=== PATIENT | female | born 1940 | race Caucasian/White ===

== ENCOUNTER 2016-11-06 15:38 | Inpatient (IN) | payer OTHER, MEDICAID ==
--- NOTE | 2016-11-06 15:49 | EDPHY ---
H & P Time Seen by Provider: 11/06/16 15:40 HPI/ROS: CHIEF COMPLAINT: Lethargy HISTORY OF PRESENT ILLNESS: Patient is a 76-year-old prison resident with a history of dementia who presents to the emergency department being less active than normal. Per EMS, the staff states she has been less active than normal. She has a mildly decreased activity level. She has still been alert. She has known dementia and is chronically confused. No other specific complaints. Patient had laboratory studies drawn earlier this morning. Patient does not answer specific questions. REVIEW OF SYSTEMS: Limited due the patient's dementia. Past Medical/Surgical History: Includes anxiety, hyperlipidemia, chronic fatigue, vitamin-D deficiency, GERD, esophagitis, dementia Social History: Patient is a prison resident. She does not smoke. Physical Exam: Vitals noted GENERAL: No acute distress, alert. Patient looks at me when I ask her questions. She does state her name but does not answer other questions. She is minimally cooperative with exam. HEENT: Eyes normal to inspection, normal pharynx, dry mucous membranes. NECK: No thyromegaly, no lymphadenopathy, supple. RESPIRATORY: Clear to auscultation bilaterally, no rales, rhonchi or wheezing. CVS: Regular rate and rhythm, no rubs, murmurs, or gallops. ABDOMEN: Soft, nontender, nondistended, no organomegaly. BACK: Normal to inspection, no CVA tenderness. SKIN: Normal color, no rash, warm, dry. No pallor. EXTREMITIES: No pedal edema, no calf tenderness, no Homans sign or cords, no joint swelling. NEURO/PSYCH: Alert and oriented x1, easily agitated, normal motor sensory exam. Moves all extremities purposefully. No obvious cranial nerve deficit. Constitutional: Initial Vital Signs Temperature (C) 36.9 C 11/06/16 15:49 Heart Rate 82 11/06/16 15:49 Respiratory Rate 20 11/06/16 15:49 Blood Pressure 94/65 L 11/06/16 15:49 O2 Sat (%) 92 11/06/16 15:49 O2 Delivery Mode Room Air Allergies/Adverse Reactions: Penicillins Allergy (Unknown, Verified 08/17/12 10:33) ampicillin Allergy (Verified 11/06/16 15:53) clindamycin Allergy (Verified 11/06/16 15:53) codeine Allergy (Verified 11/06/16 15:53) fluticasone Allergy (Verified 11/06/16 15:53) galantamine Allergy (Verified 11/06/16 15:53) iodine Allergy (Verified 11/06/16 15:53) meperidine Allergy (Verified 11/06/16 15:53) Home Medications: Medication Instructions Recorded Beta-Carotene(A) W-C & E/Min 1 tab PO DAILY 08/17/12 [Ocuvite] Lisinopril [Zestril 10 mg (RX)] 10 mg PO DAILY 08/17/12 Nicotine [Nicoderm Cq] 0.25 each TD DAILY 08/17/12 [place]-3 Fatty Acids [Fish Oil 1000 1,000 mg PO DAILY 08/17/12 mg (OTC)] Machinery Erector Completed 08/17/12 08/17/12 Pravastatin Sodium 10 mg PO DAILY 08/17/12 Medical Decision Making - Diagnostics EKG Interpretation: Sinus rhythm at 84. Left axis deviation. No ST elevation. Imaging: Imaging Impressions Chest X-Ray 11/06/16 15:52 Impression: Diminished lung volumes with bilateral lower lobe atelectasis. ED Course/Re-evaluation: I met EMS on arrival. I took report from the paginator. I reviewed the patient 's documentation from the prison. She does have a most form. Comfort measures only with no CPR. Patient had laboratory studies drawn this morning. [place] [address]. Her med crit was 38. Her platelets were normal at 198. Sodium was normal at 143. Potassium low at 2.8. Chloride mildly high at 111. CO2 low at 20. Glucose was 107. Creatinine was 1.1. Laboratory studies, chest x-ray, EKG were ordered. I rechecked the patient while here. She had no new complaints. I reviewed the patient's laboratory studies. [place] [id number]. Lactate was 1. Creatinine was mildly elevated 1.3. Her troponin was elevated at greater than 6. Sodium was mildly low at 130. Potassium was normal. Patient has positive urine study. Of note, I reviewed the patient's MOST form. The patient has a box checked stating she wants to receive antibiotics. However this scribbled out with an initial. The box stating she does not want antibiotics is checked. This is initialled. The prison was contacted. This accounts for the delay in antibiotic administration. Severe sepsis was declared. Repeat lactate was ordered. Patient was given normal saline 30 milliliters/kilogram. This was done with caution due to her age and concern for fluid overload. Patient was given Rocephin 1 g IV. 90/55. O2 sat 93%. I discussed the case with the hospitalist service. Dr. Maria Teresa Paiz agrees to admission. A continue with frequent rechecks of the patient. Her systolic pressure remained in the 90s. She continued to have a normal HR. Patient's son was contacted and informed of the patient's condition. Differential Diagnosis: My differential includes but is not limited to bacteremia, sepsis, urinary tract infection, pyelonephritis, electrolyte abnormality, sugar abnormality, pneumonia, dementia, CVA, ACS, acute GA Critical Care Time: The patient required 35 minutes of critical care time. This was exclusive of any unbundled procedure. This was due to the patient's dementia and altered mental status, need for frequent rechecks, hypotension, underlying infection, abnormal laboratory studies. - Data Points Laboratory Results: Laboratory Results 11/06/16 16:00 11/06/16 16:00 11/06/16 11/06/16 11/06/16 16:25 16:00 16:00 WBC RBC Hgb Hct MCV MCH MCHC RDW Plt Count MPV Neut % (Auto) Lymph % (Auto) [place] % (Auto) Eos % (Auto) Baso % (Auto) Nucleat RBC Rel Count Absolute Neuts (auto) Absolute Lymphs (auto) Absolute Monos (auto) Absolute Eos (auto) Absolute Basos (auto) Absolute Nucleated RBC Immature Gran % Seg Neutrophils % Band Neutrophils % Lymphocytes % Monocytes % Immature Gran # Absolute Seg Neuts Absolute Band Neuts Absolute Lymphocytes Absolute Monocytes RBC/WBC/PLT Morphology Platelet Estimate PT 13.7 SEC SEC (12.0-15.0) INR 1.06 (0.83-1.16) APTT 30.3 SEC SEC (23.0-38.0) VBG Lactic Acid Sodium 142 mEq/L mEq/L (134-144) Potassium 3.0 mEq/L L mEq/L (3.5-5.2) Chloride 111 mEq/L H mEq/L (97-110) Carbon Dioxide 24 mEq/l mEq/l (22-31) Anion Gap 7 mEq/L L mEq/L (8-16) BUN 28 mg/dL H mg/dL (7-23) Creatinine 1.3 mg/dL H mg/dL (0.6-1.0) Estimated GFR 40 Glucose 155 mg/dL H mg/dL (70-100) Calcium 8.0 mg/dL L mg/dL (8.5-10.4) Total Bilirubin 0.6 mg/dL mg/dL (0.1-1.4) Troponin I 6.250 ng/mL H ng/mL (0-0.034) Urine Color DAVID Urine Appearance MODERATELY TURBID Urine pH 5.0 (5.0-7.5) Ur Specific [place] > 1.035 H (1.002-1.030) Urine Protein 3+ H (NEGATIVE) Urine Ketones NEGATIVE (NEGATIVE) Urine Blood 3+ H (NEGATIVE) Urine Nitrate NEGATIVE (NEGATIVE) Urine Bilirubin NEGATIVE (NEGATIVE) Urine Urobilinogen NEGATIVE EU EU (0.2-1.0) Ur Leukocyte Esterase NEGATIVE (NEGATIVE) Urine RBC 5-10 /hpf H /hpf (0-3) Urine WBC 50-182 /hpf H /hpf (0-3) Ur Epithelial Cells TRACE /lpf /lpf (NONE-1+) Urine Bacteria 4+ /hpf H /hpf (NONE SEEN) Urine Mucus 2+ /lpf H /lpf (NONE-1+) Urine Glucose NEGATIVE (NEGATIVE) 11/06/16 11/06/16 16:00 16:00 WBC 21.47 10^3/uL H 10^3/uL (3.80-9.50) RBC 4.64 10^6/uL 10^6/uL (4.18-5.33) Hgb 12.4 g/dL L g/dL (12.6-16.3) Hct 37.9 % L % (38.0-47.0) MCV 81.7 fL fL (81.5-99.8) MCH 26.7 pg L pg (27.9-34.1) MCHC 32.7 g/dL g/dL (32.4-36.7) RDW 14.2 % % (11.5-15.2) Plt Count 232 10^3/uL 10^3/uL (150-400) MPV 11.4 fL fL (8.7-11.7) Neut % (Auto) Not Reported Lymph % (Auto) Not Reported [place] % (Auto) Not Reported Eos % (Auto) Not Reported Baso % (Auto) Not Reported Nucleat RBC Rel Count 0.0 % % (0.0-0.2) Absolute Neuts (auto) Not Reported Absolute Lymphs (auto) Not Reported Absolute Monos (auto) Not Reported Absolute Eos (auto) Not Reported Absolute Basos (auto) Not Reported Absolute Nucleated RBC 0.00 10^3/uL 10^3/uL (0-0.01) Immature Gran % Not Reported Seg Neutrophils % 77 % % Band Neutrophils % 16 % % Lymphocytes % 2 % % Monocytes % 5 % % Immature Gran # Not Reported Absolute Seg Neuts 16.53 10^/uL H 10^/uL (1.70-6.50) Absolute Band Neuts 3.44 10^3/uL H 10^3/uL (0.00-0.70) Absolute Lymphocytes 0.43 10^3/uL L 10^3/uL (1.00-3.00) Absolute Monocytes 1.07 10^3/uL H 10^3/uL (0.30-0.80) RBC/WBC/PLT Morphology NORMAL (NORMAL) Platelet Estimate ADEQUATE (ADEQ) PT INR APTT VBG Lactic Acid 1.0 mmol/L mmol/L (0.7-2.1) Sodium Potassium Chloride Carbon Dioxide Anion Gap BUN Creatinine Estimated GFR Glucose Calcium Total Bilirubin Troponin I Urine Color Urine Appearance Urine pH Ur Specific [place] Urine Protein Urine Ketones Urine Blood Urine Nitrate Urine Bilirubin Urine Urobilinogen Ur Leukocyte Esterase Urine RBC Urine WBC Ur Epithelial Cells Urine Bacteria Urine Mucus Urine Glucose Medications Given: Discontinued Medications Sodium Chloride (Ns) 500 mls @ 0 mls/hr IV ONCE ONE PRN Reason: Wide Open Stop: 11/06/16 15:55 Last Admin: 11/06/16 16:42 Dose: 500 mls Ceftriaxone Sodium/Dextrose (Rocephin 1 Gm (Premix)) 50 mls @ 100 mls/hr IV EDNOW ONE PRN Reason: Protocol Stop: 11/06/16 17:32 Last Admin: 11/06/16 17:30 Dose: 50 mls Departure - Departure Disposition: [facility] Acute Clinical Impression: Elevated troponin, Severe sepsis Dementia Qualifiers: Dementia type: unspecified type Leukocytosis Qualifiers: Leukocytosis type: unspecified Qualified Code(s): D72.829 - Elevated white blood cell count, unspecified Urinary tract infection Qualifiers: Urinary tract infection type: acute cystitis Hematuria presence: with hematuria Qualified Code(s): N30.01 - Acute cystitis with hematuria Condition: Good
[2016-11-06] MEDS ORDERED: NS 500 ML IV ONE (15:54)
[2016-11-06 16:14] LABS: ADD DIFF? YES; ADD MORPH? NO; ADD SCAN? NO; ATYPICAL LYMPHOCYTE FLAG 0 (0-99); FRAGMENT RBC FLAG 0 (0-99); HEMATOCRIT 37.9 % (38.0-47.0); HEMOGLOBIN 12.4 g/dL (12.6-16.3); LEFT SHIFT FLG 30 (0-99); LIPEMIA HEMOLYSIS FLAG 80 (0-99); MEAN CELL HEMOGLOBIN 26.7 pg (27.9-34.1); MEAN CELL HEMOGLOBIN CONCENTR. 32.7 g/dL (32.4-36.7); MEAN CELL VOLUME 81.7 fL (81.5-99.8); MEAN PLATELET VOLUME 11.4 fL (8.7-11.7); PLATELET CLUMPS FLAG 20 (0-99); PLATELET COUNT 232 10^3/uL (150-400); RED BLOOD CELL COUNT 4.64 10^6/uL (4.18-5.33); RED CELL DISTRIBUTION WIDTH 14.2 % (11.5-15.2)
--- NOTE | 2016-11-06 16:18 | CPEKG ---
Heart Rate: 84 RR Interval: 714 P-R Interval: 140 QRSD Interval: 84 QT Interval: 388 QTC Interval: 459 P [place]: 74 QRS [place]: -16 T Wave [place]: 10 EKG Severity - BORDERLINE ECG - EKG Impression: SINUS RHYTHM EKG Impression: PROBABLE LEFT ATRIAL ABNORMALITY EKG Impression: BORDERLINE LEFT AXIS DEVIATION Electronically Signed By: Sara Mota 06-Nov-2016 22:08:37
[2016-11-06 16:26] LABS: APTT 30.3 SEC (23.0-38.0); INR 1.06 (0.83-1.16); PROTIME(PATIENT) 13.7 SEC (12.0-15.0)
[2016-11-06 16:27] LABS: ANION GAP 7 mEq/L (8-16); BILIRUBIN,TOTAL 0.6 mg/dL (0.1-1.4); CARBON DIOXIDE 24 mEq/l (22-31); CHLORIDE 111 mEq/L (97-110); CREATININE 1.3 mg/dL (0.6-1.0); GLOMERULAR FILTRATION RATE 40; GLUCOSE 155 mg/dL (70-100); SODIUM 142 mEq/L (134-144)
[2016-11-06 16:37] LABS: PLATELET ESTIMATE ADEQUATE (ADEQ)
[2016-11-06 16:38] LABS: COLOR AMBER; LEUKOCYTE ESTERASE,URINE NEGATIVE (NEGATIVE); NITRITE,URINE NEGATIVE (NEGATIVE)
[2016-11-06 16:43] LABS: BACTERIA 4+ /hpf (NONE SEEN); MUCUS 2+ /lpf (NONE-1+); WBC,URINE 50-182 /hpf (0-3)
[2016-11-06] MEDS ORDERED: NS 2,200 ML IV ONE (17:03)
[2016-11-06] MEDS ORDERED: ONDANSETRON 4 MG/2 ML VIAL IVP PRN (19:13)
[2016-11-06] MEDS ORDERED: ACETAMINOPHEN 650 MG SUPP PR PRN (19:13)
[2016-11-06] MEDS ORDERED: ONDANSETRON DISINTEGRATING 4 MG TAB PO PRN (19:13)
[2016-11-06] MEDS ORDERED: LORazepam 2 MG/ML INJ IVP PRN (19:13)
[2016-11-06] MEDS ORDERED: NS 1,000 ML IV SCH (19:15)
[2016-11-06] MEDS ORDERED: PROTOCOL MAGNESIUM 1 DOSE IV PRN (19:18)
[2016-11-06] MEDS ORDERED: PROTOCOL CALCIUM 1 DOSE IV PRN (19:18)
[2016-11-06] MEDS ORDERED: PROTOCOL K PHOSPHATE 1 DOSE IV PRN (19:18)
[2016-11-06] MEDS ORDERED: PROTOCOL POTASSIUM 1 DOSE MISC PRN (19:18)
--- NOTE | 2016-11-06 19:25 | PDGENHP ---
History and Physical - Chief Complaint decreased interaction - History of Present Illness 76 yo F with hx of advanced Alzheimer's dementia presenting from [facility] where she resides with concerns that she has been less interactive than usual At baseline she is oriented x 1, but generally more responsive than she was found to be today. There were not any other specific concerns raised by [facility] and patient herself is not verbally interactive at the time of my evaluation. Her vital signs were not reported as different and she was not reported to be complaining of pain etc. Discussed with patients son Joe over the phone, he notes that there have been concerns at [facility] for the last week that she has not been herself, and less interactive. He notes at baseline, she talks, though many words she uses are made up. He also notes that she is generally able to feed herself, and will swat people away who are touching her. He also had concerns that her abdomen seemed swollen for the last week, but [facility] staff told him they thought she was just gaining weight. History Information - Allergies/Home Medication List Allergies/Adverse Reactions: Penicillins Allergy (Unknown, Verified 08/17/12 10:33) ampicillin Allergy (Verified 11/06/16 15:53) clindamycin Allergy (Verified 11/06/16 15:53) codeine Allergy (Verified 11/06/16 15:53) fluticasone Allergy (Verified 11/06/16 15:53) galantamine Allergy (Verified 11/06/16 15:53) iodine Allergy (Verified 11/06/16 15:53) meperidine Allergy (Verified 11/06/16 15:53) Home Medications: Acetaminophen [Tylenol 325mg (*)] 650 mg PO Q4 PRN 11/06/16 [Last Taken 11/05/16 ] Acetaminophen [Tylenol Supp 325mg (*)] 325 mg TX Q4 PRN 11/06/16 [Last Taken 11:00] Ergocalciferol [Vitamin D2 (*)] 50,000 unit PO Q30D 11/06/16 [Last Taken ] Menthol 5% Patch 1 patch TP DAILY 11/06/16 [Last Taken 11/06/16] Nystatin Powder [Mycostatin Powder (RX)] 1 danyelle TP BID 11/06/16 [Last Taken 11/06 08:00] I have personally reviewed and updated: family history, medical history, social history, surgical history - Past Medical History dementia, GERD, hypertension, hyperlipidemia, psychiatric history (anxiety) - Surgical History Reports: no pertinent surgical hx - Family History Additional family history: brother with dementia - Social History Smoking Status: Never smoked Alcohol Use: None Drug Use: None Additional social history: resides in [place] due to advanced dementia. Has 2 children, Joe Ortiz, her son, is MDPOA Review of Systems Review of Systems: unobtainable given patients inability to communicate verbally currently Physical Exam Temp Pulse Resp BP Pulse Ox 36.9 C 68 18 97/62 L 92 11/06/16 15:49 11/06/16 19:19 11/06/16 19:19 11/06/16 19:19 11/06/16 19:19 Constitutional: not in pain, chronically ill appearing Eyes: PERRL, EOMI Ears, Nose, Mouth, Throat: moist mucous membranes, poor dentition Cardiovascular: regular rate and rhythym, no murmur, rub, or gallop Respiratory: no respiratory distress, no rales or rhonchi Gastrointestinal: normoactive bowel sounds, soft, non-tender abdomen Genitourinary: no bladder tenderness Skin: warm, normal color Musculoskeletal: other (not responding to commands, but moving voluntarily all 4 ) Neurologic: other (patient somnolent, not responding to commands, withdraws to pain, not verbal), No AAOx3 Psychiatric: encephalopathic Lab Data & Imaging Review 11/06/16 16:00 11/06/16 16:00 WBC 21.47 10^3/uL (3.80-9.50) H 11/06/16 16:00 RBC 4.64 10^6/uL (4.18-5.33) 11/06/16 16:00 Hgb 12.4 g/dL (12.6-16.3) L 11/06/16 16:00 Hct 37.9 % (38.0-47.0) L 11/06/16 16:00 MCV 81.7 fL (81.5-99.8) 11/06/16 16:00 MCH 26.7 pg (27.9-34.1) L 11/06/16 16:00 MCHC 32.7 g/dL (32.4-36.7) 11/06/16 16:00 RDW 14.2 % (11.5-15.2) 11/06/16 16:00 Plt Count 232 10^3/uL (150-400) 11/06/16 16:00 MPV 11.4 fL (8.7-11.7) 11/06/16 16:00 Neut % (Auto) Not Reported 11/06/16 16:00 Lymph % (Auto) Not Reported 11/06/16 16:00 [place] % (Auto) Not Reported 11/06/16 16:00 Eos % (Auto) Not Reported 11/06/16 16:00 Baso % (Auto) Not Reported 11/06/16 16:00 Nucleat RBC Rel Count 0.0 % (0.0-0.2) 11/06/16 16:00 Absolute Neuts (auto) Not Reported 11/06/16 16:00 Absolute Lymphs (auto) Not Reported 11/06/16 16:00 Absolute Monos (auto) Not Reported 11/06/16 16:00 Absolute Eos (auto) Not Reported 11/06/16 16:00 Absolute Basos (auto) Not Reported 11/06/16 16:00 Absolute Nucleated RBC 0.00 10^3/uL (0-0.01) 11/06/16 16:00 Immature Gran % Not Reported 11/06/16 16:00 Seg Neutrophils % 77 % 11/06/16 16:00 Band Neutrophils % 16 % 11/06/16 16:00 Lymphocytes % 2 % 11/06/16 16:00 Monocytes % 5 % 11/06/16 16:00 Immature Gran # Not Reported 11/06/16 16:00 Absolute Seg Neuts 16.53 10^/uL (1.70-6.50) H 11/06/16 16:00 Absolute Band Neuts 3.44 10^3/uL (0.00-0.70) H 11/06/16 16:00 Absolute Lymphocytes 0.43 10^3/uL (1.00-3.00) L 11/06/16 16:00 Absolute Monocytes 1.07 10^3/uL (0.30-0.80) H 11/06/16 16:00 RBC/WBC/PLT Morphology NORMAL (NORMAL) 11/06/16 16:00 Platelet Estimate ADEQUATE (ADEQ) 11/06/16 16:00 PT 13.7 SEC (12.0-15.0) 11/06/16 16:00 INR 1.06 (0.83-1.16) 11/06/16 16:00 APTT 30.3 SEC (23.0-38.0) 11/06/16 16:00 VBG Lactic Acid 1.0 mmol/L (0.7-2.1) 11/06/16 16:00 Sodium 142 mEq/L (134-144) 11/06/16 16:00 Potassium 3.0 mEq/L (3.5-5.2) L 11/06/16 16:00 Chloride 111 mEq/L (97-110) H 11/06/16 16:00 Carbon Dioxide 24 mEq/l (22-31) 11/06/16 16:00 Anion Gap 7 mEq/L (8-16) L 11/06/16 16:00 BUN 28 mg/dL (7-23) H 11/06/16 16:00 Creatinine 1.3 mg/dL (0.6-1.0) H 11/06/16 16:00 Estimated GFR 40 11/06/16 16:00 Glucose 155 mg/dL (70-100) H 11/06/16 16:00 Calcium 8.0 mg/dL (8.5-10.4) L 11/06/16 16:00 Total Bilirubin 0.6 mg/dL (0.1-1.4) 11/06/16 16:00 Troponin I 6.250 ng/mL (0-0.034) H 11/06/16 16:00 Urine Color DAVID 11/06/16 16:25 Urine Appearance MODERATELY TURBID 11/06/16 16:25 Urine pH 5.0 (5.0-7.5) 11/06/16 16:25 Ur Specific [place] > 1.035 (1.002-1.030) H 11/06/16 16:25 Urine Protein 3+ (NEGATIVE) H 11/06/16 16:25 Urine Ketones NEGATIVE (NEGATIVE) 11/06/16 16:25 Urine Blood 3+ (NEGATIVE) H 11/06/16 16:25 Urine Nitrate NEGATIVE (NEGATIVE) 11/06/16 16:25 Urine Bilirubin NEGATIVE (NEGATIVE) 11/06/16 16:25 Urine Urobilinogen NEGATIVE EU (0.2-1.0) 11/06/16 16:25 Ur Leukocyte Esterase NEGATIVE (NEGATIVE) 11/06/16 16:25 Urine RBC 5-10 /hpf (0-3) H 11/06/16 16:25 Urine WBC 50-182 /hpf (0-3) H 11/06/16 16:25 Ur Epithelial Cells TRACE /lpf (NONE-1+) 11/06/16 16:25 Urine Bacteria 4+ /hpf (NONE SEEN) H 11/06/16 16:25 Urine Mucus 2+ /lpf (NONE-1+) H 11/06/16 16:25 Urine Glucose NEGATIVE (NEGATIVE) 11/06/16 16:25 Visualized and Interpreted Chest x-ray results: Yes Chest X-Ray results: other (poor inspiration, bilateral lower lobe atelectasis) EKG Interpretation: Positive for: normal sinsus rhythm EKG additional interpertation: borderline lad Assessment & Plan Assessment: 76 yo F with advanced dementia admitted with acute on chronic encephalopathy in setting of NSTEMI and likely early sepsis 2/2 UTI # NSTEMI: with initial trop of 6.250, but no ecg changes. Unable to assess sxs given patients dementia. Will monitor on tele, obtain serial ecg/trops. Cardiology has been consulted. Will obtain echo in am. Joe (MDPFRANCHESKA) notes that he is uncertain if patient would want intervention, given that it is not addressed on her MOST. Likely medical mgmt appropriate however given poor baseline functional status # acute on chronic encephalopathy: with baseline dementia that is quite advanced , patient currently essentially non verbal, though is clearly interacting with her environment, and did swat my hand away when I examined her. Likely related to infection/nstemi and toxic metabolic encephalopathy. Monitoring. Non focal neuro exam. # UTI: UA c/w infection and concurrent elevated WBC and hypotension, suspect early sepsis. Started ctx, cultures pending. # AUNDREA: in setting of hypotension, nstemi, UTI and suspect pre renal. IVF overnight, will recheck in am # hypotension: in setting of infection/nstemi. BP has improved with IVF, continue to monitor, bolus prn. # alzheimer's dementia: as above, at baseline patient largely speaks in language that she has made up per her son, oriented x 1 # Code status: DNR, MOST form somewhat ambiguous--no tube feeds, no cpr, antibiotics initially said 'no' but changed to 'yes' with 'unclear' written in. Son not sure about procedures etc. Will ask for palliative to help clarify. Patient new to my care. Old records reviewed and summarized as above. Care plan reviewed with ER doc, further hx obtained from patients son present at bedside.
[2016-11-06 19:47] LABS: ALBUMIN 2.5 g/dL (3.5-5.0); BILIRUBIN,TOTAL 0.5 mg/dL (0.1-1.4); BILIRUBIN-CONJUGATED 0.4 mg/dL (0.0-0.5); BILIRUBIN-UNCONJUGATED 0.1 mg/dL (0.0-1.1); TOTAL PROTEIN 5.5 g/dL (6.3-8.2)
[2016-11-06] MEDS: HYDROmorphONE/DILAUDID 1 MG/ML SYR IVP PRN (20:18)
[2016-11-06] MEDS: POTASSIUM Cl (KCl) 100 ML IV SCH ×2 (21:58→23:30)
[2016-11-06] MEDS: NYSTATIN POWDER 15 GM BTL TP SCH (21:59)
[2016-11-06] MEDS: HEPARIN 5,000 UNIT/0.5 ML SYR SC SCH (22:01)
[2016-11-07] MEDS: POTASSIUM Cl (KCl) 100 ML IV SCH ×3 (00:33→23:24)
[2016-11-07 04:42] LABS: % IMMATURE GRANULYOCYTES 0.9 % (0.0-1.1); ABSOLUTE IMMATURE GRANULOCYTES 0.14 10^3/uL (0.00-0.10); ADD DIFF? NO; ADD MORPH? NO; ADD SCAN? NO; ATYPICAL LYMPHOCYTE FLAG 0 (0-99); FRAGMENT RBC FLAG 0 (0-99); HEMATOCRIT 35.8 % (38.0-47.0); HEMOGLOBIN 11.4 g/dL (12.6-16.3); LEFT SHIFT FLG 10 (0-99); LIPEMIA HEMOLYSIS FLAG 80 (0-99); MEAN CELL HEMOGLOBIN 26.8 pg (27.9-34.1); MEAN CELL HEMOGLOBIN CONCENTR. 31.8 g/dL (32.4-36.7); MEAN CELL VOLUME 84.2 fL (81.5-99.8); MEAN PLATELET VOLUME 12.3 fL (8.7-11.7); PLATELET CLUMPS FLAG 0 (0-99); PLATELET COUNT 195 10^3/uL (150-400); RED BLOOD CELL COUNT 4.25 10^6/uL (4.18-5.33); RED CELL DISTRIBUTION WIDTH 14.6 % (11.5-15.2)
[2016-11-07 04:43] LABS: IONIZED CALCIUM 1.04 MMOL/L (1.12-1.30)
[2016-11-07 05:04] LABS: ANION GAP 6 mEq/L (8-16); CALCIUM 7.3 mg/dL (8.5-10.4); CARBON DIOXIDE 21 mEq/l (22-31); CHLORIDE 116 mEq/L (97-110); GLOMERULAR FILTRATION RATE 54; GLUCOSE 76 mg/dL (70-100); MAGNESIUM 2.1 mg/dL (1.6-2.3); POTASSIUM 4.3 mEq/L (3.5-5.2); SODIUM 143 mEq/L (134-144)
[2016-11-07] MEDS: HYDROmorphONE/DILAUDID 1 MG/ML SYR IVP PRN (05:55)
[2016-11-07] MEDS: HEPARIN 5,000 UNIT/0.5 ML SYR SC SCH ×3 (05:57→23:49)
--- NOTE | 2016-11-07 08:37 | CPEKG ---
Heart Rate: 124 RR Interval: 484 P-R Interval: 128 QRSD Interval: 78 QT Interval: 320 QTC Interval: 460 P [place]: 64 QRS [place]: -17 T Wave [place]: 3 EKG Severity - OTHERWISE NORMAL ECG - EKG Impression: SINUS TACHYCARDIA EKG Impression: BORDERLINE LEFT AXIS DEVIATION Electronically Signed By: Sara Mota 07-Nov-2016 22:04:02
[2016-11-07] MEDS: NYSTATIN POWDER 15 GM BTL TP SCH ×2 (09:10→22:00)
[2016-11-07] MEDS: MENTHOL 5% TP SCH (10:08)
[2016-11-07] MEDS ORDERED: ASPIRIN 325 MG TAB PO SCH (11:00)
[2016-11-07] MEDS ORDERED: 1/2 NS 1,000 ML IV SCH (11:00)
--- NOTE | 2016-11-07 11:09 | HOSPPROG ---
Hospitalist Progress Note Assessment/Plan: Sepsis secondary to UTI / E coli bacteremia - Hypotension improved with IVF bolus. She received 1 dose of Ceftriaxone. MOST form notes DNR / comfort and though initially the "give atbx" box was checked, this was crossed out and the "no atbx" was checked. Discussed goals of care with sonJoe. He is considering withdrawing care due to his mom's poor QOL with advanced alzheimer' s. He'll discuss further with his sister who is a conservative congregation and may feel differently. -palliative care consult today -hold atbx for now (next dose due at 1700) -family considering withdrawing care and opting for comfort only vs home with hospice NSTEMI in setting of sepsis - trop 6 --> 2. She is not a candidate for angiogram. Will proceed with medical management for now while family considers goals of care as above. -ASA, statin -hold BB due to hypotension Advanced Alzheimer's dementia with acute encephalopathy in setting of infection - pt lives at [facility]. Speech is non-sensical. She is not safe to take po, discussed with speech therapy. -cont NPO -IVF's for hydration AUNDREA - Cr 1.3 to 1.0 with IVF's Code status - DNR/comfort Dispo - palliative care consult today. Son Joe is DPOA, considering withdrawing care, opting for hospice. He doesn't think his mom would want to in the hospital Subjective: Pt is resting comfortably, as long as she isn't touched. She was uncooperative with speech eval. Non-sensical speech, won't open her eyes. Doesn't answer questions or follow commands. Objective: Vital Signs Temp Pulse Resp BP Pulse Ox 36.7 C 125 H 20 98/60 L 91 L 11/07/16 07:52 11/07/16 07:52 11/07/16 07:52 11/07/16 07:52 11/07/16 07:52 Laboratory Results 11/07/16 03:41 11/07/16 03:41 11/06/16 11/07/16 11/08/16 05:59 05:59 05:59 Intake Total 3075 Balance 3075 PT 13.7 SEC (12.0-15.0) 11/06/16 16:00 INR 1.06 (0.83-1.16) 11/06/16 16:00 - Physical Exam Constitutional: chronically ill appearing Ears, Nose, Mouth, Throat: moist mucous membranes Cardiovascular: tachycardia Respiratory: no respiratory distress Gastrointestinal: normoactive bowel sounds, soft, non-tender abdomen Skin: no rashes or abrasions Psychiatric: encephalopathic ICD10 Worksheet Patient Problems: Problems Problem Status Onset Chronic Disease Mgmt/Transitional Care Acute Dementia Acute Elevated troponin Acute Leukocytosis Acute Severe sepsis Acute Urinary tract infection Acute
[2016-11-07] MEDS ORDERED: NS 500 ML IV ONE (12:36)
[2016-11-07] MEDS: ATORVASTATIN CALCIUM 20 MG TAB PO SCH (12:52)
[2016-11-07] MEDS: D5W 1/2 NS 1,000 ML IV SCH ×2 (13:40→21:57)
[2016-11-07] MEDS ORDERED: CALCIUM GLUCONATE 50 ML IV ONE (14:59)
[2016-11-07] MEDS: ASPIRIN RECTAL 300 MG SUPP PR SCH (16:08)
[2016-11-07 18:58] LABS: POTASSIUM 3.6 mEq/L (3.5-5.2)
[2016-11-08] MEDS: POTASSIUM Cl (KCl) 100 ML IV SCH ×2 (00:27→01:30)
[2016-11-08 03:53] LABS: IONIZED CALCIUM 1.08 MMOL/L (1.12-1.30)
[2016-11-08 03:56] LABS: ADD DIFF? YES; ADD MORPH? NO; ADD SCAN? NO; ATYPICAL LYMPHOCYTE FLAG 0 (0-99); FRAGMENT RBC FLAG 0 (0-99); HEMATOCRIT 33.6 % (38.0-47.0); HEMOGLOBIN 10.9 g/dL (12.6-16.3); LEFT SHIFT FLG 80 (0-99); LIPEMIA HEMOLYSIS FLAG 80 (0-99); MEAN CELL HEMOGLOBIN 26.8 pg (27.9-34.1); MEAN CELL HEMOGLOBIN CONCENTR. 32.4 g/dL (32.4-36.7); MEAN CELL VOLUME 82.8 fL (81.5-99.8); PLATELET CLUMPS FLAG 0 (0-99); PLATELET COUNT 182 10^3/uL (150-400); RED BLOOD CELL COUNT 4.06 10^6/uL (4.18-5.33); RED CELL DISTRIBUTION WIDTH 14.8 % (11.5-15.2)
[2016-11-08 04:12] LABS: ALANINE AMINOTRANSFERASE 39 IU/L (9-52); ALKALINE PHOSPHATASE 72 IU/L (38-126); ANION GAP 6 mEq/L (8-16); ASPARTATE AMINOTRANSFERASE 62 IU/L (14-46); BILIRUBIN,TOTAL 0.4 mg/dL (0.1-1.4); CALCIUM 7.4 mg/dL (8.5-10.4); CARBON DIOXIDE 18 mEq/l (22-31); CHLORIDE 121 mEq/L (97-110); GLOMERULAR FILTRATION RATE 54; GLUCOSE 95 mg/dL (70-100); MAGNESIUM 2.1 mg/dL (1.6-2.3); POTASSIUM 4.2 mEq/L (3.5-5.2); SODIUM 145 mEq/L (134-144); TOTAL PROTEIN 4.7 g/dL (6.3-8.2)
[2016-11-08 05:14] LABS: PLATELET ESTIMATE ADEQUATE (ADEQ)
[2016-11-08] MEDS: HEPARIN 5,000 UNIT/0.5 ML SYR SC SCH (07:18)
[2016-11-08] MEDS: ATORVASTATIN CALCIUM 20 MG TAB PO SCH ×3 (08:45→16:29)
[2016-11-08] MEDS: MENTHOL 5% TP SCH (08:56)
[2016-11-08] MEDS: D5W 1/2 NS 1,000 ML IV SCH ×2 (10:30→17:37)
[2016-11-08] MEDS: NYSTATIN POWDER 15 GM BTL TP SCH (16:30)
--- NOTE | 2016-11-08 18:19 | HOSPPROG ---
Hospitalist Progress Note Assessment/Plan: Assessment: 76-year-old female presents with severe sepsis in the setting E coli bacteremia, complicated by acute kidney injury and non ST elevation myocardial infarction Plan: 1. Severe sepsis. Evidenced by fever, tachycardia, tachypnea, leukocytosis, clear source of infxn (bacteremia), severe end-organ failure (NSTEMI, AUNDREA), resulting in autonomic dysregulation in setting of infxn, meeting all sepsis-2/ ICDS-2 criteria - s/p IVF, IV Abx 2. E. coli bacteremia. 2/2 UTI, 11/06 BCx 2/2 positive - get PM BCx to demonstrate clearance - adjust CTX to liq Cipro given sensitivity profile, gauge patient's ability to tolerate - 2 weeks Abx 3. E. coli UTI. Positive UA, UCx, Cipro 4. NSTEMI. Type 2, in setting of sev sepsis, peak trop 6 - given adv dementia and poor fxn status, no risk stratification indicated - ASA, statin - hold BB due to hypotension 5. Advanced Alzheimer's dementia. Goals of care w/ family discussed, Abx requested - repeat palliative discussion tomorrow, will recommend discharge to [facility] w/ liq Abx as well as a [facility] directive - PO as indu 6. AUNDREA. 2/2 hypovolemia and sev sepsis, s/p IVF Diet. As indu PPx. High risk, lovenox 40 Code. DNR/comfort Dispo. ADD 11/09, pending palliative consult and BCx clearance Subjective: Patient eating if food left in front of her, not following commands Objective: Vital Signs Temp Pulse Resp BP Pulse Ox 36.6 C 101 H 18 131/73 H 93 11/08/16 13:44 11/08/16 13:44 11/08/16 13:44 11/08/16 13:44 11/08/16 13:44 Laboratory Results 11/08/16 03:15 11/08/16 03:15 11/07/16 11/08/16 11/09/16 05:59 05:59 05:59 Intake Total 3075 3320 280 Balance 3075 3320 280 PT 13.7 SEC (12.0-15.0) 11/06/16 16:00 INR 1.06 (0.83-1.16) 11/06/16 16:00 - Pending Discharge Pending Discharge Within 24 Hours: Yes Pending Discharge Date: 11/09/16 Pending Discharge Time: 11:00 - Physical Exam Constitutional: no apparent distress, not in pain, chronically ill appearing, No uncomfortable Cardiovascular: regular rate and rhythym, no murmur, rub, or gallop Respiratory: no respiratory distress, no rales or rhonchi, clear to auscultation Gastrointestinal: normoactive bowel sounds, soft, non-tender abdomen, no palpable masses Neurologic: other (Alert awake oriented times 0, not directable) Psychiatric: other (Spontaneous speech but nonsensical) ICD10 Worksheet Patient Problems: Problems Problem Status Onset Chronic Disease Mgmt/Transitional Care Acute Dementia Acute Leukocytosis Acute Elevated troponin Acute Severe sepsis Acute Urinary tract infection Acute
[2016-11-08] MEDS: ENOXAPARIN 40 MG/0.4 ML SYR SC SCH (22:39)
[2016-11-08] MEDS: ASPIRIN RECTAL 300 MG SUPP PR SCH (22:39)
[2016-11-09] MEDS: NYSTATIN POWDER 15 GM BTL TP SCH ×2 (07:36→08:35)
[2016-11-09] MEDS: MENTHOL 5% TP SCH (08:35)
[2016-11-09] MEDS ORDERED: ASPIRIN 325 MG TAB PO SCH (09:00)
[2016-11-09] MEDS ORDERED: CIPROFLOXACIN 100 MG/ML 100ML BTL PO SCH ×2 (09:00→14:00)
[2016-11-09 09:18] LABS: % IMMATURE GRANULYOCYTES 1.4 % (0.0-1.1); ABSOLUTE IMMATURE GRANULOCYTES 0.13 10^3/uL (0.00-0.10); ADD DIFF? NO; ADD MORPH? NO; ADD SCAN? NO; ATYPICAL LYMPHOCYTE FLAG 0 (0-99); FRAGMENT RBC FLAG 0 (0-99); HEMATOCRIT 35.3 % (38.0-47.0); HEMOGLOBIN 11.3 g/dL (12.6-16.3); LEFT SHIFT FLG 70 (0-99); LIPEMIA HEMOLYSIS FLAG 80 (0-99); MEAN CELL HEMOGLOBIN 26.5 pg (27.9-34.1); MEAN CELL VOLUME 82.9 fL (81.5-99.8); MEAN PLATELET VOLUME 12.3 fL (8.7-11.7); PLATELET CLUMPS FLAG 0 (0-99); PLATELET COUNT 181 10^3/uL (150-400); RED BLOOD CELL COUNT 4.26 10^6/uL (4.18-5.33); RED CELL DISTRIBUTION WIDTH 14.7 % (11.5-15.2)
[2016-11-09 09:31] LABS: ALANINE AMINOTRANSFERASE 37 IU/L (9-52); ALBUMIN 1.9 g/dL (3.5-5.0); ALKALINE PHOSPHATASE 65 IU/L (38-126); ANION GAP 6 mEq/L (8-16); ASPARTATE AMINOTRANSFERASE 42 IU/L (14-46); BILIRUBIN,TOTAL 0.4 mg/dL (0.1-1.4); CALCIUM 7.4 mg/dL (8.5-10.4); CARBON DIOXIDE 21 mEq/l (22-31); CHLORIDE 112 mEq/L (97-110); CREATININE 0.8 mg/dL (0.6-1.0); GLOMERULAR FILTRATION RATE > 60; GLUCOSE 114 mg/dL (70-100); POTASSIUM 3.2 mEq/L (3.5-5.2); SODIUM 139 mEq/L (134-144); TOTAL PROTEIN 4.9 g/dL (6.3-8.2)
[2016-11-09] MEDS: D5W 1/2 NS 1,000 ML IV SCH (09:35)
[2016-11-09] MEDS: ENOXAPARIN 40 MG/0.4 ML SYR SC SCH (09:36)
[2016-11-09] MEDS: ATORVASTATIN CALCIUM 20 MG TAB PO SCH (09:36)
[2016-11-09 10:30] VITALS: O2SAT 95
[2016-11-09 11:45] VITALS: BP 125/79; PULSE 78; RESP 21; TEMP 98
[2016-11-09] MEDS ORDERED: LORazepam 1 MG/0.5 ML UDSYR PO PRN (13:24)
--- NOTE | 2016-11-09 13:26 | PDIAF ---
- Diagnosis Diagnosis: E. coli bacteremia, UTI, Severe Dementia Code Status: Do Not Resuscitate - Medication Management Discharge Medications: Medications to Continue on Transfer Acetaminophen [Tylenol 325mg (*)] 650 mg PO Q4 PRN 11/06/16 [Last Taken 11/05/16 ] Acetaminophen [Tylenol Supp 325mg (*)] 325 mg MS Q4 PRN 11/06/16 [Last Taken 11:00] Ergocalciferol [Vitamin D2 (*)] 50,000 unit PO Q30D 11/06/16 [Last Taken ] Menthol 5% Patch 1 patch TP DAILY 11/06/16 [Last Taken 11/06/16] Nystatin Powder [Mycostatin Powder] 1 danyelle TP BID 11/06/16 [Last Taken 11/06/16 08:00] Aspirin [Aspirin 325 mg (*)] 325 mg PO DAILY tab 11/09/16 [Last Taken Unknown] Ciprofloxacin [Cipro Oral Liquid] 500 mg PO BID #27 btl 11/09/16 [Last Taken Unknown] Correction Antibiotics: Cipro 500mg PO liquid 2xd Human Factors Ergonomist Antibiotic Stop Date: 11/22/16 Discharge Medications: Refer to the Discharge Home Medication list for PRN reason. PICC Care - Routine: N/A - Orders Services needed: Registered Nurse, Master Workforce Planning Analyst, Speech Language Pathologist Oxygen: NA Diet Texture: Dysphagia 2 - Mechanically Altered - Chopped, Ground, Thin Liquids , Meds Whole in Puree Becker: Not applicable Additional: Please arrange outpatient hospice reassessment when son/family are ready. - Follow Up Care Current Providers and Referrals: Patient,NotPresent [Unknown] - As per Instructions
--- NOTE | 2016-11-09 14:44 | PDDCSUM ---
Discharge Summary Discharge Summary: DISCHARGE SUMMARY FOLLOW-UP ITEMS: Arrange outpatient hospice and palliative care consultation with the family is ready DATE OF ADMISSION: 11/06/2016 DATE OF DISCHARGE: 11/09/2016 DISCHARGE DIAGNOSES: 1. Severe sepsis 2. E coli bacteremia 3. E coli urinary tract infection 4. Non ST-elevation myocardial infarction, type 2 5. Advanced, severe Alzheimer's dementia 6. Acute kidney injury CONSULTATIONS: Palliative care PROCEDURES / IMAGING: None CHIEF COMPLAINT: Decreased level of interaction SUBJECTIVE: The patient is speaking fluently but nonsensically at time of discharge, she is minimally cooperative PHYSICAL EXAM ON DISCHARGE: Systolic blood pressure is 125, heart rate 78, satting well on room air, afebrile overnight, nonsensical speech, chronically ill-appearing woman LABS ON DISCHARGE: Patient refused, blood cultures from 11/09 no growth an pending at time of discharge HOSPITAL COURSE BY PROBLEM: 1. Severe sepsis. Evidenced by fever, tachycardia, tachypnea, leukocytosis, clear source of infection with bacteremia, severe end-organ failure, notably non ST-elevation myocardial infarction, acute kidney injury, resulting in autonomic dysregulation in the setting of infection, meeting all sepsis-2/ICDS- 2 criteria. She was treated with empiric IV fluids and empiric antibiotics. Leukocytosis was improving and her vital signs stabilized. 2. E coli bacteremia. Secondary to urinary tract infection, 11/06 blood cultures were 2/2 positive and sensitivity demonstrated for quinolone sensitive E coli colonies. She had follow-up blood cultures on 11/09 to demonstrate clearance, and this will be the 1st day of 14 days of liquid ciprofloxacin. We chose liquid ciprofloxacin as is the only antibiotic formulation which the patient seems to consistently tolerate, as she seems to refuse oral pills, and IV antibiotics with PICC line do not seem to be appropriate in this patient with severe dementia. 3. E coli urinary tract infection. Evidenced by positive urinalysis, positive urine culture, receiving Cipro as noted above. 4. Non ST-elevation myocardial infarction. Type 2, evidenced by elevated troponin level the peak level of 6. Further cardiac risk stratification was not indicated given her poor baseline functional status. This was most likely stress-induced from her severe sepsis and she was placed on a full-dose aspirin. This will be continued for secondary prevention. A statin beta- sejal were not administered secondary to her underlying severe dementia and refusal of pills. 5. Advanced, severe Alzheimer's dementia. Patient received a palliative consultation and the family would like to have her return to her previous living situation and reconsider her options prior to initiating hospice. The patient is not ready to adopted do not hospitalize directive at this time. We did advise the patient's family that her refusal to consistently eat and drink will most likely be a sign of her advancing disease process and should hair old enrollment in hospice to alleviate the pain and suffering which will immediately follow as she is at high risk for recurrent infections as well as other medical comorbidities. 6. Acute kidney injury. Secondary to hypovolemia and severe sepsis, this resolved with IV fluids. DISCHARGE MEDICATIONS: Please see official discharge medication reconciliation sheet in chart , ciprofloxacin 500 mg liquid twice daily for 14 days, aspirin 325 daily. DISCHARGE INSTRUCTIONS: Outpatient hospice re-evaluation should be scheduled. TIME SPENT: Greater than 30 minutes were spent on direct patient care, as well as discharge planning and preparation.
--- NOTE | 2016-11-09 15:31 | PDPCPN ---
Palliative Care Progress Note Assessment/Plan: Referring provider: Dr De La Cruz Reason for consult: Complex medical decision making Symptom control HPI: Kelly Freire" Case is a 76 yo female with PMH Alzhiemer's dementia, HTn, GERD , and anxiety admitted to the hospital for alerted mental status and lethargy. Found to have sepsis 2/2 UTI and bacteremia with ecoli. In addition with AUNDREA and NSTEMI due to sepsis. Palliative care consulted for complex medical decision making. Met with son Joe outside the of the room. joe shared how his mother when first dx with dementia had wanted to commit suicide as she did not feel she would have any quality of life. Joe feels that she does have a pretty good quality of life and to him she has always wanted to "make an impact". He feels she is pretty happy at [facility] and makes in impact on her family's daily life. Joe lives locally and his sister visits at times. They feel treating for infections to be within her wishes and that not treating would result in suffering. We discussed typical course of dementia is marked with frequent infections at the end of life and not treating is an option. Joe stated his mother had always hope to suddenly. He said she has filled out 5 wishes and a MOST form at the beginning of her dx. She stated in that she never wanted to in a hospital and preferred to surrounded by "nature". Discussed option of hospice care as a way to focus only on comfort and quality of life. Joe had never thought about this option but would be interested for future information. Assessment: Physical: - Pain: none noted - tylenol PRN - Poor appetite: - self feds as able - encourage general diet as tolerated - she enjoys coca cola Emotional/psychological: Acute on chronic encephalopathy: - maintain normal routines Advanced Care Planning: Is patient decisional?: No Code Status: DNR/DNI POA: son Joe is MDPOA. Plan: Return to [facility] with plans to finish out course of antibiotics. For now family would want re hospitalization and treatment for future infections if needed but do not want overly aggressive care. Hospice information for future use. Subjective: I'm ok Objective: Social History: 1 daughter and 1 son involved. 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 Medication list reviewed ROS: General: fatigue, weakness ENT: negative Resp: negative GI: poor appetite : frequent UTI MS: negative Skin: negative Neuro: negative Psych: hallucinations Functional assessment: PPS:50% Functional status: dependent on ADLs, IADLs Vital Signs Temp Pulse Resp BP Pulse Ox 36.7 C 78 21 H 125/79 H 95 11/09/16 11:42 11/09/16 11:42 11/09/16 11:42 11/09/16 11:42 11/09/16 11:42 Laboratory Results 11/09/16 08:50 11/09/16 08:50 11/08/16 11/09/16 11/10/16 05:59 05:59 05:59 Intake Total 3320 3315 Balance 3320 3315 PT 13.7 SEC (12.0-15.0) 11/06/16 16:00 INR 1.06 (0.83-1.16) 11/06/16 16:00 Physical Exam - Physical Exam General Appearance: alert, no apparent distress Respiratory: No respiratory distress, No accessory muscle use Skin: normal color, warm/dry Extremities: No pedal edema Neuro/Psych: alert, disoriented to place, disoriented to time ICD10 Worksheet Patient Problems: Problems Problem Status Onset Chronic Disease Mgmt/Transitional Care Acute Dementia Acute Elevated troponin Acute Leukocytosis Acute Palliative care encounter Acute Severe sepsis Acute Urinary tract infection Acute - ICD10 Problem Qualifiers (1) Palliative care encounter
== END 2016-11-09 16:06 | DRG 871 ==
LOC: EDUNIT# → OBSVTOIN 19:31 → F2W 19:50
PROVIDERS: ADMIT Internal Medicine; ATTEND Internal Medicine
DX: A41.51 Sepsis due to Escherichia coli [E. coli] (principal); R65.20 Severe sepsis without septic shock; N39.0 Urinary tract infection, site not specified; B96.20 Unspecified Escherichia coli [E. coli] as the cause of diseases classified elsewhere; I21.4 Non-ST elevation (NSTEMI) myocardial infarction; N17.9 Acute kidney failure, unspecified; G30.9 Alzheimer's disease, unspecified; F02.80 Dementia in other diseases classified elsewhere, unspecified severity, without behavioral disturbance, psychotic disturbance, mood disturbance, and anxiety; E78.5 Hyperlipidemia, unspecified; R53.82 Chronic fatigue, unspecified; E55.9 Vitamin D deficiency, unspecified; K21.9 Gastro-esophageal reflux disease without esophagitis; K20.9 Esophagitis, unspecified; I10 Essential (primary) hypertension; Z66 Do not resuscitate
CPT/HCPCS: 92526-GN; 92610-GN; 96365; 97163-GP; G8978-GP-CM; G8979-GP-CM; G8980-GP-CM; G8996-GN-CK; G8997-GN-CK; G8998-GN-CJ; J0610; J0696; J1170